=== PATIENT | female | born 1940 | race Caucasian/White ===

== ENCOUNTER 2019-03-10 09:12 | Outpatient (CLI) | payer MEDICARE ==
--- NOTE | 2019-03-10 09:36 | RAD ---
EXAM: 2 views of the left humerus HISTORY: left arm pain after fall COMPARISON: None FINDINGS: 2 views of the left humerus shows no evidence of acute fracture or dislocation. No degenera tive changes are seen. No soft tissue swelling is present. IMPRESSION: No evidence of acute osseous abnormality.
--- NOTE | 2019-03-10 09:36 | RAD ---
EXAM: 3 views of the left shoulder HISTORY: Shoulder pain COMPARISON: None FINDINGS: There is no evidence of acute fracture or dislocation. No degenerative changes are present. No soft tissue swelling is seen. The visualized thorax is unremarkable. IMPRESSION: No evidence of acute osseous abnormality.
== END 2019-03-10 09:13 | disposition home or self-care (01) ==
LOC: BICRAD 09:12
PROVIDERS: ATTEND Family Medicine
DX: M25.512 Pain in left shoulder (principal); M79.602 Pain in left arm; W19.XXXA Unspecified fall, initial encounter

== ENCOUNTER 2021-01-19 09:55 | Outpatient (CLI) | payer MEDICARE | END 2021-01-19 09:56 | disposition home or self-care (01) | LOC: BICMAMMO 09:55 | PROVIDERS: ATTEND Internal Medicine | DX: Z12.31 Encounter for screening mammogram for malignant neoplasm of breast (principal); Z91.89 Other specified personal risk factors, not elsewhere classified | CPT/HCPCS: 77063; 77067 ==

== ENCOUNTER 2022-10-29 11:06 | Outpatient (CLI) | payer MEDICARE | END 2022-10-29 11:07 | disposition home or self-care (01) | LOC: RAD 11:06 | PROVIDERS: ATTEND Family Medicine | DX: R06.09 Other forms of dyspnea (principal) | CPT/HCPCS: 36415; 71046; 80053; 80061; 82306; 85025 ==

== ENCOUNTER 2023-01-06 08:48 | Outpatient (CLI) | payer MEDICARE | END 2023-01-06 08:49 | disposition home or self-care (01) | LOC: BICMAMMO 08:48 | PROVIDERS: ATTEND Family Medicine | DX: Z12.31 Encounter for screening mammogram for malignant neoplasm of breast (principal); Z91.89 Other specified personal risk factors, not elsewhere classified | CPT/HCPCS: 77063; 77067 ==

== ENCOUNTER 2023-04-11 09:49 | Outpatient (CLI) | payer MEDICARE ==
[2023-04-11 10:59] LABS: Hematocrit 40.9 % (34.9-44.5); Hemoglobin 14.1 g/dL (12.0-15.5); Mean Corpuscular HGB CONC 34.5 g/dL (32.0-36.0); Mean Corpuscular Hemoglobin 33.3 pg (27.0-33.0); Mean Corpuscular Volume 96.7 fl (81.6-98.3); Mean Platelet Volume 10.4 fl (7.4-10.4); Platelet Count 181 10x3/uL (150-450); RBC Distribution Width 12.2 % (11.5-14.5); Red Blood Cell (RBC) Count 4.23 10x6/uL (3.90-5.03); White Blood Cell (WBC) Count 5.8 10x3/uL (3.5-10.5)
[2023-04-11 11:31] LABS: ALT (SGPT) 11 U/L (8-55); AST (SGOT) 26 U/L (5-34); Albumin 4.5 g/dL (3.4-4.8); Alkaline Phosphatase 82 U/L (40-110); Anion Gap 14 mmol/L (10-20); BUN (Urea Nitrogen) 23 mg/dL (9.8-20.1); Calc. Creatinine Clearance 0 mL/min (70-130); Calcium 9.4 mg/dL (7.8-10.44); Carbon Dioxide 25 mmol/L (23-31); Chloride 106 mmol/L (98-107); Estimated GFR 52; Globulin 2.8 g/dL (2.4-3.5); Glucose 109 mg/dL (83-110); Potassium 4.6 mmol/L (3.5-5.1); Protein, Total 7.3 g/dL (5.8-8.1); Sodium 140 mmol/L (136-145)
[2023-04-11 11:35] LABS: INR-International Normal Ratio 1.1
== END 2023-04-11 09:50 | disposition home or self-care (01) ==
LOC: LABBT 09:49
PROVIDERS: ATTEND Internal Medicine Cardiovascular Disease
DX: Z01.812 Encounter for preprocedural laboratory examination (principal); I48.20 Chronic atrial fibrillation, unspecified; W19.XXXA Unspecified fall, initial encounter
CPT/HCPCS: 80053; 85027; 85610; 86850; 86900; 86901

== ENCOUNTER 2023-04-11 10:00 | Inpatient (IN) | payer MEDICARE ==
[2023-04-11 10:25] VITALS: BMI 38.7
[2023-04-17] MEDS ORDERED: Heparin 10,000 UNITS/ 10 ML VIAL ONE (06:44)
[2023-04-17] MEDS ORDERED: Protamine Sulfate 50 MG/5 ML VIAL ONE (06:44)
[2023-04-17] MEDS ORDERED: CEFAZOLIN 2 GM VIAL ONE (06:44)
[2023-04-17] MEDS ORDERED: Rocuronium Bromide 10 MG/ML (10ML VIAL) ONE (07:14)
[2023-04-17] MEDS ORDERED: fentaNYL 50 mcg/mL 1 mL Vial ONE (07:14)
[2023-04-17] MEDS ORDERED: Phenylephrine 10 MG/ML VIAL ONE (07:15)
[2023-04-17] MEDS ORDERED: PROPOFOL 20 ML ONE (07:15)
[2023-04-17] MEDS ORDERED: Lidocaine 1% PF 5 ML VIAL ONE (07:16)
[2023-04-17] MEDS ORDERED: Promethazine HCl 25 MG/ML VIAL ONE (07:25)
[2023-04-17] MEDS ORDERED: Dexamethasone 4 mg/ml Vial ONE (08:22)
[2023-04-17] MEDS ORDERED: Ondansetron PF 4 MG/2 ML Vial ONE (08:22)
[2023-04-17] MEDS ORDERED: SUGAMMADEX SODIUM 200 MG/2 ML VIAL ONE (08:59)
[2023-04-17] MEDS ORDERED: Iopamidol 370 76% 100 ML VIAL ONE (11:45)
== END 2023-04-17 12:53 | disposition home or self-care (01) | DRG 274 ==
LOC: SURG A 04-17 05:37 → EDSTATUS 04-17 10:00
PROVIDERS: ADMIT Internal Medicine Cardiovascular Disease; ATTEND Internal Medicine Cardiovascular Disease
PROC: 02L73DK Occlusion of Left Atrial Appendage with Intraluminal Device, Percutaneous Approach (ICD-10-PCS; principal; 2023-04-17)
PROC: 3E033XZ Introduction of Vasopressor into Peripheral Vein, Percutaneous Approach (ICD-10-PCS; 2023-04-17)
DX: I48.21 Permanent atrial fibrillation (principal); Z00.6 Encounter for examination for normal comparison and control in clinical research program; Z79.899 Other long term (current) drug therapy; Z88.0 Allergy status to penicillin; Z88.5 Allergy status to narcotic agent; Z88.8 Allergy status to other drugs, medicaments and biological substances
CPT/HCPCS: 33340; 85347; 86850; 86900; 86901; 93306; 93312; C1759; C1760; C1769; C1893; C1894; J1100; J1644; J2371; J2405; J2550; J2704; J2720; J3010; Q9967

== ENCOUNTER 2023-07-03 09:47 | Outpatient (CLI) | payer MEDICARE | END 2023-07-03 09:48 | disposition home or self-care (01) | LOC: BICMAMMO 09:47 | PROVIDERS: ATTEND Family Medicine | DX: Z13.820 Encounter for screening for osteoporosis (principal); Z78.0 Asymptomatic menopausal state; M85.851 Other specified disorders of bone density and structure, right thigh; M85.852 Other specified disorders of bone density and structure, left thigh | CPT/HCPCS: 77080 ==